=== PATIENT | male | born 2000 | race Caucasian/White ===

== ENCOUNTER 2022-09-12 00:18 | Emergency (ER) | payer OTHER ==
[2022-09-12] MEDS ORDERED: Ondansetron PF 4 MG/2 ML Vial ONE (00:42)
[2022-09-12] MEDS ORDERED: Ketorolac Tromethamine 30 MG/ML VIAL ONE (00:42)
[2022-09-12] MEDS ORDERED: Iopamidol-370 76% 500 ML MDV (1 ML CHARGE) ONE (09:22)
== END 2022-09-12 03:27 | disposition home or self-care (01) ==
LOC: ERS 00:18
DX: K52.9 Noninfective gastroenteritis and colitis, unspecified (principal)
CPT/HCPCS: 74177; 96374; 96375; J1885; J2405; Q9967